=== PATIENT | female | born 1960 | race Caucasian/White ===

== ENCOUNTER 2019-02-04 08:17 | Emergency (ER) | payer OTHER, SELFPAY ==
[2019-02-04 08:25] VITALS: BP 141/89; PULSE 64; RESP 16; TEMP 37; O2SAT 100
--- NOTE | 2019-02-04 08:38 | DI.RAD_ITS ---
EXAM: XR HAND LT COMPLETE INDICATION: PAIN, INJURY, FELL FINDINGS: There is a faint transverse radiolucency projected over the distal radius. The possibility of a nond isplaced fracture could not be entirely excluded. The carpus is intact. No fracture involving the addison nd is evident. Further assessment with CT is suggested.
--- NOTE | 2019-02-04 08:40 | W.ED.GENAD ---
Discharge Plan Disposition Patient Disposition: HOME Condition: Good Discharge Details Chief Complaint: Orthopedic Clinical Impression: Fracture of wrist Primary Care Provider: Sowmya,Local ED Provider: Yari Crowe Home Meds and New Rx's Prescriptions: No Action No Known Home Meds RF: 0 Discharge Instructions Instructions: Wrist Fracture in Adults (ED) Additional Instructions: Rest. Activities as tolerated. Elevate injury to prevent swelling. Ice to the area of discomfort for 15 min. 3-5 times daily. Motrin every 8 hours with food or Tylenol every 6 hours for soreness if needed over the counter for comfort. Followup with orthopedic doctor for reevaluation. Keep splint in place, clean and dry. Return for any worsening or concerns sooner if needed. Stand Alone Forms: Work Release Referrals: Esvin Lainez MD [ [facility] STAFF PHYSICIAN] - Medical Decision Making Patient presents with a wrist injury to the left wrist after falling on outstretched hand down 2 steps. Patient has mild swelling noted at the wrist. Patient on x-ray does have a radial wrist fracture. Distal neurovascularly intact on exam. Patient splinted with a ulnar gutter/volar splint and sling. To follow-up with orthopedic. Aron encouraged. Patient reports her understanding and agrees to plan of care. HPI General Date/Time Provider Initiated Documentation: 02/04/19 08:20. HPI Narrative: Patient presents for complaints of left wrist injury. Patient reports she fell down the last 2 wooden steps at her house and landed on her left outstretched wrist. Patient did strike her left head. Patient denies headache, loss of consciousness, dizziness, nausea, vomiting. No neck or back pain. Patient denies any other sites of pain or injury. Primarily concerned with the left wrist. Swelling noted at the left wrist. No numbness, tingling or weakness reported. Related Data Home Medications Medication Instructions Recorded Confirmed Unknown [No Known Home Meds] 02/04/19 02/04/19 Allergies Allergy/AdvReac Type Severity Reaction Status Date / Time No Known Allergies Allergy Unverified 02/04/19 08:28 General Stated Complaint: Orthopedic THOMAS: 4 Review of Systems Review of Systems Narrative: CONSTITUTIONAL: The patient denies fevers, chills. EYES: Denies vision changes, blurry vision, or eye pain. ENT: Denies hearing changes, tinnitus, vertigo, sore throat. CARDIAC: Denies chest pain, SOB. RESPIRATORY: Denies cough, sputum. Denies difficulty breathing. GASTROINTESTINAL: Denies abdominal pain, changes in bowel, vomiting or nausea. GENITOURINARY: Denies dysuria, or frequency of urination. MUSCULOSKELETAL: Left wrist pain, no gait changes. NEUROLOGIC: Denies headaches, Denies focal weakness. Denies numbness. INTEGUMENT: Denies rashes. PSYCHIATRIC: Denies behavior changes. Denies anxiety or depression. ENDOCRINOLOGY: Denies fatigue. PSYCHIATRY: Denies depression, agitation or anxiety [facility] Social History Smoking/Tobacco Use Status: Never Alcohol Intake: current Alcohol Intake frequency: a few times a week Substance use type: does not use Additional Social history: unable to assess Exam Narrative Exam Narrative: CONST: Healthy appearing patient, in no acute distress. Well hydrated. Alert and alert. HENMT: Head nomocephalic, normal to inspection. Atraumatic. Hearing grossly normal. EYES: General normal appearance. Alignment normal. Eyelids normal. Conjunctiva normal. NECK: Normal visual inspection. FROM. Trachea midline. No Midline tenderness. CHEST: Normal insepection of the chest. RESP: Normal respiratory effort. Speaking full sentences. No cough. No audible wheezing. No retractions. CARDIO: No JVD. Neck back spine; no midline tenderness to the cervical, thoracic or lumbar spine. No step-offs. No ecchymosis low back. MUSCULOSKELETAL: Normal Gait. No shoulder pain with palpation, humeral head with palpation. No elbow pain palpation. Significant forearm. Palpation. Moderate tenderness of the radial aspect of the left wrist. Snuffbox tenderness present which is mild. Swelling present at the radial wrist. Distal neurovascularly intact. Mild dorsal hand pain with palpation. Flexion extension intact of digits. SKIN: Normal. Dry. No rashes. NEURO: Alert and awake. Speech clear. PSYCH: Normal affect. Cooperative. Course Vital Signs Vital signs: Vital Signs Temperature 37.0 C 02/04/19 08:25 Pulse 64 02/04/19 08:25 Respiratory Rate 16 02/04/19 08:25 Blood Pressure 141/89 H 02/04/19 08:25 Pulse Oximetry 100 02/04/19 08:25 Temperature 37.0 C 02/04/19 08:25 Temperature Source Temporal Artery Scan 02/04/19 08:25 Pulse 64 02/04/19 08:25 Respiratory Rate 16 02/04/19 08:25 Respiratory Effort Non-Labored 02/04/19 08:27 Blood Pressure 141/89 H 02/04/19 08:25 Blood Pressure Position Sitting 02/04/19 08:25 Pulse Oximetry 100 02/04/19 08:25 Oxygen Delivery Method Room Air 02/04/19 08:25 Oxygen Flow Rate 0 02/04/19 08:25 Pain Level 10 02/04/19 08:29 Procedures Orthopedic Splinting/Casting Injury #1: Side: left Upper Extremity Injury Location: wrist Upper Extremity Immobilizer: sling/shoulder immobilizer, thumb spica and Waylon wrap
[2019-02-04] MEDS: Acetaminophen 500 MG TAB 1000 MG PO (08:46)
[2019-02-04 10:06] VITALS: BP 133/67; PULSE 61; RESP 16; TEMP 37; O2SAT 100
== END 2019-02-04 10:18 | disposition home or self-care (01) ==
LOC: ER 10:38
PROVIDERS: Emergency Provider Physician Assistant
DX: S52.592A Other fractures of lower end of left radius, initial encounter for closed fracture (principal); W10.8XXA Fall (on) (from) other stairs and steps, initial encounter
CPT/HCPCS: 25600; 73110; 73130; L3650

== ENCOUNTER 2019-02-18 08:23 | Outpatient (CLI) | payer OTHER, SELFPAY ==
--- NOTE | 2019-02-18 08:16 | DI.RAD_ITS ---
EXAM: XR WRIST LT COMPLETE INDICATION: WRIST FRACTURE. COMPARISON: XR WRIST LT COMP NAVICULAR from 02/04/2019 TECHNIQUE: 2D digital imaging was performed. FINDINGS: Three views were obtained. The wrist is in a splint. Previously described fracture of the distal ra dius again noted with no gross interval change in alignment of the fracture fragments in comparison w ith examination of February 04. IMPRESSION:
== END 2019-02-18 08:43 ==
PROVIDERS: Visit Provider Student in an Organized Health Care Education/Training Program
DX: S52.572D Other intraarticular fracture of lower end of left radius, subsequent encounter for closed fracture with routine healing (principal)
CPT/HCPCS: 73110

== ENCOUNTER 2019-03-15 11:13 | Outpatient (CLI) | payer OTHER, SELFPAY ==
--- NOTE | 2019-03-15 11:01 | DI.RAD_ITS ---
EXAM: XR WRIST LT COMPLETE INDICATION: s/p L wrist frx f/u. COMPARISON: XR WRIST LT COMPLETE from 02/18/2019 TECHNIQUE: 2D digital imaging was performed. FINDINGS: There has been continued healing of the distal left radial fracture. No new fracture or dislocation is present. IMPRESSION: Healing distal left radial fracture.
== END 2019-03-15 11:33 ==
PROVIDERS: Visit Provider Student in an Organized Health Care Education/Training Program
DX: S52.572D Other intraarticular fracture of lower end of left radius, subsequent encounter for closed fracture with routine healing (principal)
CPT/HCPCS: 73110

== ENCOUNTER 2019-04-27 06:11 | Day surgery (SDC) | payer OTHER, SELFPAY ==
[2019-04-27] VITALS (8 sets, daily range): BP systolic 113–136; BP diastolic 60–83; PULSE 48–61; RESP 10–16; TEMP 36.4–36.7; O2SAT 97–100
[2019-04-27] MEDS: Lactated Ringers 1,000 ML 80 ML IV (07:03)
--- NOTE | 2019-04-27 07:28 | PDOC.DSDIS_ITS ---
Discharge Plan Disposition Patient Disposition: HOME Condition: Good Discharge Details Reason For Visit: (L) EPL RUPTURE Attending Provider: Esvin Lainez Primary Care Provider: ,Local Home Meds and New Rx's Prescriptions: New hydrocodone-acetaminophen 5-325 mg tablet 1 tab PO Q6H PRN (Reason: severe pain) Qty: 6 RF: 0 acetaminophen 500 mg tablet 500 mg PO Q6H PRN (Reason: pain) Qty: 60 RF: 2 ibuprofen 600 mg tablet 600 mg PO TID PRN (Reason: pain) Qty: 60 RF: 2 Continued vitamin B complex [B Complex-Vitamin B12] Tablet 1 tab PO DAILY RF: 0 Discharge Instructions Additional Instructions: Rupture of extensor tendon Discharge Instructions Activity: You should keep the hand elevated as much as possible for the first few days. You may use the other fingers as tolerated but avoid trying to do too much too soon. You may perform light activities with the splint in place. Dressing/Cast: Your splint should stay in place at all times for the first week. Do NOT get it wet. You may loosen the LONA wrap if you feel it is too tight and then rewrap more loosely. After one week you may transition out of the splint into your brace. Medications: - You should take Tylenol and Ibuprofen for baseline pain control. - You have Hydrocodone for breakthrough pain. - You may apply ice over the thumb. Follow-up: 7-10 days Referrals: Esvin Lainez MD [ [facility] STAFF PHYSICIAN] - Equipment/Supplies: Splint Activity:: Elevate Remove Dressings/Wound Care:: Do Not Remove Shower/Bathe:: Cover Diet:: As Tolerated Discharge Orders Discharge Orders: Discharge Order (Routine); Ordered 04/27/19 Ordered By: Nasra Sandoval DS: Diagnosis Discharge Diagnosis (1) Rupture of extensor tendon of left hand: Status: Acute
[2019-04-27] MEDS: ceFAZolin 2 GM/50 ML BAG IVPB (07:32)
[2019-04-27] MEDS: Bupivacaine 0.25% Pres-Free 30 ML VIAL (08:16)
--- NOTE | 2019-04-27 17:51 | ROE_ITS ---
DATE OF SURGERY: April 27, 2019 PREOPERATIVE DIAGNOSIS: Spontaneous rupture of left extensor pollicis longus tendon. POSTOPERATIVE DIAGNOSIS: Same. SURGERY: Extensor indicis proprius to extensor pollicis longus (EIP to EPL) tendon transfer of left hand. SURGEON: Esvin Lainez M.D. ANESTHESIA: General LMA. ESTIMATED BLOOD LOSS: Minimal. COMPLICATIONS: None. DISPOSITION: The patient was awakened from anesthesia and taken to the PACU in a stable condition. INDICATION FOR PROCEDURE: Ivana is a 58-year-old who had a nondisplaced distal radius fracture. She was treated non-operatively. At about the three month iza she was seen and cleared for all activit ies. Two days after this appointment she was using her hand and felt something pop and was unable to elevate or extend the left thumb. She was evaluated in the office and diagnosed with an EPL rupture . I discussed treatment options with Ivana. Given this rupture, she needs to have this repaired. The options were a direct repair vs. an EIP to EPL transfer. The literature supports and EIP to EPL transfer as the most predictable way of returning function to the thumb. I did talk about the necess agnieszka time for rehabilitation, although she has commitments with her work. She is to wear a brace and a splint and she is aware of this. I also discussed the risk of re-tear and re-rupture, numbness and tingling, stiffness and pain. Despite these risks, she elected to proceed. PROCEDURE DESCRIPTION: Ivana was greeted in the preoperative holding area. Her identity was confirm ed and the correct side was identified and marked. The consent was reviewed with the patient and sig josé miguel. The history and physical was updated. She was taken back to the operating room. She was place d in the supine position. The left hand was placed on a hand table. A non-sterile tourniquet was pl aced high up on the left arm. A general anesthetic was administered. The left hand was prepped with ChloraPrep and draped in a standard fashion. A time-out was performed for safe surgery. Prophylact ic antibiotics in the form of Cefazolin were given. Clinical examination under anesthesia showed that there was no IP extension of the thumb with the ten odesis effect. A 3 cm incision was made longitudinally just ulnar to Nigel's tubercle. This was ta margarita off sharply to the skin. Any branches of the superficial radial nerve and crossing veins were re tracted out of the way. The extensor retinaculum was identified and the tendons of the fourth compar tment were palpated. The proximal portion of the extensor retinaculum was then incised. The most ra dial tendon also had a very distal muscle belly representing the EIP, extensor indicis proprius, tend on. This was marked. I then made a 1 cm transverse incision just proximal to the MCP joint of the i ndex finger. The most ulnar tendon was expected to be the EIP tendon and this was also dissected stefanie e from the neighboring EDC tendon. The EDC tendon did seem to have two slips in this area. The most ulnar tendon was identified and once again checked to correspond to what we thought would be the EIP tendon at the level of the wrist. Once this was confirmed, the EIP tendon was transected at the lev el of the MCP joint and it was then pulled through the wrist incision. Once this was through, a 2 cm longitudinal incision was made overlying the course of the EPL tendon. This was taken off sharply t o the skin. Branches of the superficial radial nerve were dissected and retracted out of the way. T he EPL tendon was identified and it was pulled out. There was noted to be about a 2 cm area of attri tional rupture where the tendon was flattened and frayed. With this now out of the wound, I then cre ated a subcutaneous tunnel from the level of the EIP tendon up to the level of the EPL tendon at the level of the MCP joint of the thumb. Once this was brought through the tendons were clamped together for tensioning purposes and the thumb was tested for appropriate length. The goal was to allow the thumb pad to touch the index finger when the wrist goes to extension and then have the thumb pull christel y when the wrist goes into flexion, tenodesis effect. This was tested and adjusted. Once it seemed to be in appropriate position, it was held in place with a suture. A single slip was made within the EPL tendon and the EIP tendon was brought through this and secured with a #2-0 FiberWire. This was repeated four times with each time passing the tendon at 90 degrees from the previous throw. The ten don was incised and the graft was brought through in a standard Pulvertaft weave. Each pass was then secured with a #2-0 FiberWire. This was done for four throws. This was tested to show to have exce llent recreation of the extension properties of the EPL tendon with good tenodesis effect. The exces s tendon from the EIP was brought back over and then secured with a #3-0 FiberWire. Excess EPL tendo n was resected. The wounds were then thoroughly irrigated. The deep tissues were closed with a #3-0 Vicryl. The skin was closed with a #4-0 Monocryl. The wounds were injected with 0.5% Bupivacaine. The skin was secured with skin glue and dressed with 4x4's and Webril. A thumb spica splint was uma lied with the wrist in 20 degrees of extension, 30 degrees of flexion of the MCP joint and 0 degrees of extension at the IP joint. The tourniquet was deflated after twenty-seven minutes. Blood flow re turned to all fingers with good capillary refill of < 2 seconds. At the end of the case all counts w ere correct.
== END 2019-04-27 11:10 | disposition home or self-care (01) ==
PROVIDERS: Visit Provider Student in an Organized Health Care Education/Training Program
PROC: (CPT 26480; principal; 2019-04-27 07:30)
DX: M66.242 Spontaneous rupture of extensor tendons, left hand (principal)
CPT/HCPCS: 26480; J0690; J1100; J1885; J2250; J2405

== ENCOUNTER 2019-05-29 16:13 | Emergency (ER) | payer OTHER, SELFPAY ==
[2019-05-29 16:20] VITALS: BP 118/86; PULSE 69; RESP 16; TEMP 36.6; O2SAT 97
--- NOTE | 2019-05-29 16:35 | ED.GENADUL_ITS ---
Discharge Plan Disposition Patient Disposition: HOME Condition: Stable Discharge Details Chief Complaint: Orthopedic Clinical Impression: Visit for wound check, Change or removal of wound dressing, Orthopedic aftercare Primary Care Provider: Sowmya,Local ED Provider: Kailyn Khan Home Meds and New Rx's Prescriptions: Continued vitamin B complex [B Complex-Vitamin B12] Tablet 1 tab PO DAILY RF: 0 acetaminophen 500 mg tablet 500 mg PO Q6H PRN (Reason: pain) Qty: 60 RF: 2 ibuprofen 600 mg tablet 600 mg PO TID PRN (Reason: pain) Qty: 60 RF: 2 Discharge Instructions Instructions: Acute Wound Care (ED) Additional Instructions: Keep the dressing clean, dry and intact. Be sure to rest and keep extremity elevated as much as possible. Alternate Tylenol and Motrin as needed and directed for pain. Take the oxycodone for pain not relieved with Tylenol or Motrin. Follow-up with your scheduled appointment with Dr. Lainez on Friday. Return to the emergency department if you develop any worsening or concerning symptoms such as fevers, increased pain, redness or swelling. Referrals: Esvin Lainez MD [ [facility] STAFF PHYSICIAN] - Discharge Data Discharge Date/Time-TO BE ENTERED AT DEPARTURE: 05/29/19 17:33 Discharge Physician: Kailyn Khan Medical Decision Making 58-year-old female 1 month status post left wrist tendon transfer with Dr. Lainez complicated by site infection treated with Keflex presents with worsening left wrist pain after recent dressing change and splint placement to left wrist [address] Lainez. She presents with Mepilex dressing to apply to area as directed by Dr. Lainez if needed. Splint and dressing removed here. Reviewed other recent images of wrist wound on phone and does not appear significantly different and almost slightly improved. There is no surrounding erythema. Tendon visible. There is no pus drainage, induration or fluctuance. Do not see indication for antibiotics at this time. Case discussed with Dr. Lainez who agrees with plan for splint removal and to now cover instead with Mepilex, soft bulky dressing and Waylon wrap. Mepilex placed and covered with Kerlix and Waylon wrap. Patient given a dose of oxycodone as well as prescription for home. She has a follow-up appointment with Dr. Lainez on Friday morning. Usual and customary return precautions given prior to discharge. HPI General Mode of arrival: ambulatory . Date/Time Provider Initiated Documentation: 05/29/19 16:32 . Limitations to Documentation: no limitations . Information obtained by: patient . History of Present Illness 58 year old F presents to the emergency department with the chief complaint of Wound check of left thumb/wrist, Quality is described as aching and sharp, and is localized to the left and upper extremity (Left hand/wrist). Patient reports no radiation. Patient started experiencing this day(s) (2) and it has been constant. Rest improves symptom(s), Movement worsens symptoms and Other factors that worsen symptoms (Splint) . Patient notes denies fever/chills. Patient did receive the following treatments prior to arrival, none Related D catherine Home Medications Medication Instructions Recorded Confirmed vitamin B complex [B 1 tab PO DAILY 04/26/19 05/29/19 Complex-Vitamin B12] acetaminophen 500 mg PO Q6H PRN #60 tab 04/27/19 05/29/19 ibuprofen 600 mg PO TID PRN #60 tab 04/27/19 05/29/19 Previous Rx's Medication Instructions Recorded acetaminophen 500 mg PO Q6H PRN #60 tab 04/27/19 ibuprofen 600 mg PO TID PRN #60 tab 04/27/19 Allergies Allergy/AdvReac Type Severity Reaction Status Date / Time latex Allergy Verified 05/29/19 16:27 General Stated Complaint: Orthopedic THOMAS: 3 Review of Systems All systems reviewed & are unremarkable except as noted in HPI and below Constitutional Constitutional: Reports as per HPI, Denies chills and Denies fever(s) Eyes Eyes: Denies blurry vision ENT Ears, Nose, Mouth, and Throat: Denies dizziness, Denies sore throat and Denies throat swelling Cardiovascular Cardiovascular: Denies chest pain and Denies dyspnea Respiratory Respiratory: Denies cough and Denies dyspnea Gastrointestinal Gastrointestinal: Denies abdominal pain, Denies diarrhea and Denies vomiting Genitourinary Genitourinary: Denies hematuria and Denies dysuria Musculoskeletal Musculoskeletal: Denies back pain and Denies numbness Integumentary/Breasts Skin/Breast: Denies lesions and Denies rash Neurologic Neurologic: Denies dizziness, Denies focal weakness and Denies numbness Allergic/Immunologic Allergic/Immunologic: Denies throat swelling [facility] Medical History History of seizure (Acute) PT. STATES SHE USED TO GET FREQUENT SEIZURES IN HER TWENTY'S. HAS STATED SHE HAS NOT HAD ONE IN 30+ YEARS. WOULD LIKE US TO BE AWARE. Social History Smoking/Tobacco Use Status: Never Alcohol Intake: current Alcohol Intake frequency: a few times a week Alcohol type: beer and wine Drug use: Never Substance use type: does not use Current gender identity: female Do you feel safe at home: Yes Do you feel safe in your relationship?: Yes Exam Const General: cooperative, healthy appearing and no acute distress HENMT Head: normal to inspection Mouth: oral mucosae normal Eyes General: appearance normal, both eyes and all related structures Neck Neck: normal visual inspection Resp Effort & Inspection: normal respiratory effort and able to speak in complete sentences Cardio Rate: regular rate Skin General skin exam: no rashes or lesions noted Neuro General: alert, awake and oriented x3 Motor: muscle tone normal throughout Other: Motor/sensory grossly intact left hand. Extrem Hand/finger images: 1. 4 mm x 2 cm open wound with tendon exposed at distal aspect of wound located on dorsolateral surface of base of left thumb. There is mild active oozing of blood. There is no significant surrounding erythema, edema, ecchymosis fluctuance or induration. No pus drainage noted. Area is tender to palpation. Other: Left radial and ulnar pulses intact. Psych Appearance: grossly normal Affect: normal affect Course Vital Signs Vital signs: Vital Signs Temperature 97.9 F 05/29/19 16:20 Pulse 69 05/29/19 16:20 Respiratory Rate 16 05/29/19 16:20 Blood Pressure 118/86 05/29/19 16:20 Pulse Oximetry 97 05/29/19 16:20 Temperature 97.9 F 05/29/19 16:20 Temperature Source Skin 05/29/19 16:20 Pulse 69 05/29/19 16:20 Respiratory Rate 16 05/29/19 16:20 Respiratory Effort 05/29/19 16:27 Blood Pressure 118/86 05/29/19 16:20 Blood Pressure Position Sitting 05/29/19 16:20 Pulse Oximetry 97 05/29/19 16:20 Oxygen Delivery Method Room Air 05/29/19 16:20 Oxygen Flow Rate 0 05/29/19 16:20 Pain Level 8 05/29/19 16:20
[2019-05-29] MEDS: oxyCODONE 5 MG TAB PO (17:24)
== END 2019-05-29 17:33 | disposition home or self-care (01) ==
LOC: ER 17:16
PROVIDERS: Emergency Provider Physician Assistant
DX: M25.532 Pain in left wrist (principal); G89.18 Other acute postprocedural pain; Z48.01 Encounter for change or removal of surgical wound dressing; Z96.7 Presence of other bone and tendon implants
CPT/HCPCS: 99283

== ENCOUNTER 2019-06-02 12:23 | Day surgery (SDC) | payer OTHER, SELFPAY ==
[2019-06-02 12:47] VITALS: BP 112/69; PULSE 58; RESP 16; TEMP 36.6; O2SAT 95
[2019-06-02] MEDS: Lactated Ringers 1,000 ML 80 ML IV (13:10)
[2019-06-02] MEDS: ceFAZolin 2 GM/50 ML BAG IVPB (15:21)
[2019-06-02] MEDS: Sodium Bicarbonate 50 MEQ/50 ML VIAL (16:05)
--- NOTE | 2019-06-02 16:13 | W.PM.DSUDISC ---
Discharge Plan Disposition Patient Disposition: HOME Condition: Good Discharge Details Reason For Visit: (L) HAND WOUND Attending Provider: Esvin Lainez Primary Care Provider: ,Local Home Meds and New Rx's Prescriptions: New hydrocodone-acetaminophen 5-325 mg tablet 1 tab PO Q4H PRN (Reason: pain) Qty: 12 RF: 0 Continued vitamin B complex [B Complex-Vitamin B12] Tablet 1 tab PO DAILY RF: 0 acetaminophen 500 mg tablet 500 mg PO Q6H PRN (Reason: pain) Qty: 60 RF: 2 ibuprofen 600 mg tablet 600 mg PO TID PRN (Reason: pain) Qty: 60 RF: 2 Discontinued oxycodone 5 mg Capsule 5 mg PO Q6H RF: 0 Discharge Instructions Additional Instructions: Activity: You should keep the hand/thumb elevated as much as possible for the first few days. You may use the other fingers as tolerated but avoid trying to do too much too soon. You may perform light activities with the splint in place. Dressing/Cast: Your splint should stay in place at all times. Do NOT get it wet. You may loosen the LONA wrap if you feel it is too tight and then rewrap more loosely. Medications: - You should take Tylenol and Ibuprofen for baseline pain control. - You have Hydrocodone for breakthrough pain. - You may apply ice over the thumb. Follow-up: 14 days Referrals: Esvin Lainez MD [ [facility] STAFF PHYSICIAN] - [facility] [Provider Group] (Hand Therapy with orthoplast thumb extension brace fabrication) Equipment/Supplies: Splint Activity:: Elevate Remove Dressings/Wound Care:: Do Not Remove Shower/Bathe:: Cover Diet:: As Tolerated Discharge Orders Discharge Orders: Discharge Order (Routine); Ordered 06/02/19 Ordered By: Esvin Lainez DS: Diagnosis Discharge Diagnosis (1) Rupture of extensor tendon of left hand: Status: Acute (2) Surgical wound dehiscence: Status: Acute
[2019-06-02 16:49] VITALS: BP 119/69; PULSE 53; RESP 16; TEMP 36.3; O2SAT 100
--- NOTE | 2019-06-03 08:15 | ROE_ITS ---
REPORT OF OPERATIVE PROCEDURE DATE OF SURGERY June 02, 2019 PREOPERATIVE DIAGNOSIS Left surgical wound dehiscence with exposed tendon. POSTOPERATIVE DIAGNOSIS Left surgical wound dehiscence with re-rupture of EIP to EPL transfer. SURGERY Irrigation and debridement of left hand wound with primary EIP to EPL repair. SURGEON Esvin Lainez M.D. ANESTHESIA General. ESTIMATED BLOOD LOSS Minimal. COMPLICATIONS: None. DISPOSITION The patient was awakened from anesthesia and taken to the PACU in a stable condition. FINDINGS The exposed tendon was actually the proximal end of the EPL tendon. The wound had no gross purulence. There was some healing tissue and skin, but no signs of active infection. The edge of the tendon, wh ich was exposed with debrided. The wound was inspected and while it was the thought that the tendon w as intact, it was found to not be. There was notable destruction of this area. There was some suture, which was left free. In general, the tendon components were not present. I was able to bring the two ends together. The distal end was the proximal portion of the EIP to EPL interlocking weave and the proximal stump was the distal end of the EIP tendon. This tendon quality was quite poor due to the re cent infection, but was still able to be approximated. Therefore, I proceeded with a tendon repair di rectly. INDICATION FOR PROCEDURE Ivana is a 58-year-old who had an EPL rupture due to a nondisplaced distal radius fracture of the lef t hand. An EIP to EPL transfer was performed. Due to various circumstances, she returned to work with in a few days and was out of the area for this time. She used a brace. However, she was working long days within the brace. She noticed some swelling and was diagnosed with an infection while she was in [place]. This was treated initially with antibiotics. The infection improved and cured with antibio tics, but unfortunately, she had dehiscence of her wound. I then evaluated her in the office, where t here was notable tendon exposed. The wound appeared clean. It was dressed and treated conservatively initially. However, at followup visits, the tendon was still exposed and therefore, the decision was made to proceed with a debridement. I discussed the risks of the procedure to include recurrence, tendon dysfunction, damage to nerves an d vessels, damage to muscles and tendons, need for repeat procedures. Despite these risks, she electe d to proceed. . PROCEDURE DESCRIPTION Ivana was greeted in the preoperative holding area. Her identity was confirmed and the correct side was identified and marked. The consent was reviewed with the patient and signed. The history and ph ysical was updated. She was taken back to the Operating Room and placed in the supine position. The left hand was placed on a hand table. Prophylactic antibiotics in the form of Cefazolin were admini stered. The left hand was prepped with Betadine and draped in a standard fashion. A timeout was perfo rmed for safe surgery. The initial area of dehiscence was identified and this incision was extended a pproximately 1 cm in each direction. I was very careful with the skin edges as she had good healing g ranulation tissue. The skin flaps were elevated to expose the underlying tendon. The wound was then t horoughly irrigated. After irrigation, there was no gross debris. There was no obvious evidence of ac tive infection. There was no purulence. Unfortunately, there was remnant suture seen within the wound itself, these were removed. With the th umb in maximal extension, the distal stump was evaluated. It was unclear exactly what happened, but i t appears that the infection eroded through the majority of the tendon. There simply was a section of tendon not present. The distal stump was likely the proximal edge of the Pulvertaft Weave. The proxi mal stump was visible in the wound, which represented the distal edge of the EIP tendon. This once ag ain was thoroughly irrigated and this tissue was identified. I did not see any remnant transfer mater ial. There was scarring between the two edges, which was likely holding them in relative position. Gi alondra this finding, I did decide to proceed with a direct tendon repair. After the debridement was performed, I used a # 3-0 FiberWire in a cruciate-type pattern to perform t wo locking sutures, a four core repair. The tissue quality was quite poor and I had to modify the sut ure technique to grab, as much good tissue was I possibly could find and to bring these edges back to gether. After the second suture was placed, there was noted to be a good bit of tension, but no gappi ng of the tendon with tenodesis effect. I then used a #3-[address] two simple type sutures right around the tendon edges, which actually provided nice reapproximation of the complete circumfe rence of the tendon. This was once again irrigated. The wound was anesthetized with 1% lidocaine with epinephrine. The skin was closed with a #4-0 Nylon with large horizontal mattress sutures making shannon e to jose roberto the skin edges. The wound was dressed with Xeroform, 4x4s and Webril. A short-arm thumb sp ica splint was applied. At the end of the case, all counts were correct. She was transferred back to the Same Day Surgery in stable condition.
== END 2019-06-02 17:47 | disposition home or self-care (01) ==
PROVIDERS: Visit Provider Student in an Organized Health Care Education/Training Program
PROC: (CPT 26373; principal; 2019-06-02 15:30)
DX: T81.32XA Disruption of internal operation (surgical) wound, not elsewhere classified, initial encounter (principal); M66.242 Spontaneous rupture of extensor tendons, left hand
CPT/HCPCS: 26373; J0690; J1885; J2001; J2405; J2704

== ENCOUNTER 2019-06-26 11:31 | Emergency (ER) | payer OTHER, SELFPAY ==
[2019-06-26 11:35] VITALS: BP 124/90; PULSE 70; RESP 16; TEMP 36.9; O2SAT 100
--- NOTE | 2019-06-26 11:50 | W.ED.GENAD ---
Discharge Plan Disposition Patient Disposition: HOME Condition: Improving Discharge Details Chief Complaint: Orthopedic Clinical Impression: Surgical wound dehiscence Primary Care Provider: [facility] Provider: Antoni Randall Home Meds and New Rx's Prescriptions: Continued ciprofloxacin HCl 500 mg tablet 500 mg PO BID Qty: 14 RF: 0 vitamin B complex [B Complex-Vitamin B12] Tablet 1 tab PO DAILY RF: 0 hydrocodone-acetaminophen 5-325 mg tablet 1 tab PO Q4H PRN (Reason: pain) Qty: 12 RF: 0 acetaminophen 500 mg tablet 500 mg PO Q6H PRN (Reason: pain) Qty: 60 RF: 2 ibuprofen 600 mg tablet 600 mg PO TID PRN (Reason: pain) Qty: 60 RF: 2 No Action cephalexin 500 mg capsule 500 mg PO BID RF: 0 cephalexin [Keflex] 500 mg capsule 500 mg PO BID RF: 0 Discharge Instructions Additional Instructions: Continue wet-to-dry dressing changes once daily. May soak the wound and then gently reflect the dressing as we discussed. Continue ciprofloxacin as previously prescribed. Follow-up with Dr. Lainez in clinic on Friday as planned. Return to the emergency department for any acute concern. Medical Decision Making 58-year-old female presents for wound check. She has been following with Dr. Lainez for left thumb extensor tendon repair and subsequent redo on June 03. She was placed on ciprofloxacin and wet-to-dry dressing changes in clinic. Now difficulty with removing dressing. I was able to gently remove the wet-to-dry dressing with good granulation tissue present. She will continue the ciprofloxacin and follow-up with Dr. Lainez on Friday as planned. CC: Dr. Lainez [facility] General Mode of arrival: ambulatory. Date/Time Provider Initiated Documentation: 06/26/19 11:31. Limitations to Documentation: no limitations. Information obtained by: patient. History of Present Illness 58 year old F presents to the emergency department with the chief complaint of Wound check, described as mild, and is localized to the left and upper extremity. Patient reports no radiation. Patient started experiencing this day(s) and it has been constant. No relieving factors improve symptom(s), No exacerbating factors reported . Patient notes denies fever/chills. Patient did receive the following treatments prior to arrival, none Related Data Home Medications Medication Instructions Recorded Confirmed vitamin B complex [B 1 tab PO DAILY 12/09/19 02/08/20 Complex-Vitamin B12] acetaminophen 500 mg PO Q6H PRN #60 tab 06/02/19 06/26/19 hydrocodone-acetaminophen 1 tab PO Q4H PRN #12 tab 06/02/19 06/26/19 ibuprofen 600 mg PO TID PRN #60 tab 06/02/19 06/26/19 ciprofloxacin HCl 500 mg tablet 500 mg PO BID #14 tab 06/21/19 06/26/19 cephalexin 500 mg PO BID 06/26/19 06/26/19 cephalexin [Keflex] 500 mg PO BID 06/26/19 06/26/19 Previous Rx's Medication Instructions Recorded acetaminophen 500 mg PO Q6H PRN #60 tab 06/02/19 hydrocodone-acetaminophen 1 tab PO Q4H PRN #12 tab 06/02/19 ibuprofen 600 mg PO TID PRN #60 tab 06/02/19 ciprofloxacin HCl 500 mg tablet 500 mg PO BID #14 tab 06/21/19 Allergies Allergy/AdvReac Type Severity Reaction Status Date / Time latex Allergy Verified 06/26/19 11:38 aloe AdvReac Verified 06/26/19 11:38 General Stated Complaint: Orthopedic THOMAS: 4 Review of Systems Narrative: No fever, no pain, no discharge REPLACED BY [facility] Medical History History of seizure (Acute) PT. STATES SHE USED TO GET FREQUENT SEIZURES IN HER TWENTY'S. HAS STATED SHE HAS NOT HAD ONE IN 30+ YEARS. WOULD LIKE US TO BE AWARE. Hx of fracture of wrist (Acute) Ruptured tendon (Acute) Social History Smoking/Tobacco Use Status: Never Alcohol Intake: current Alcohol Intake frequency: a few times a week Alcohol type: beer and wine Drug use: Never Substance use type: does not use Details: alcohol: 05/24/19, glass of wine Current gender identity: female Do you feel safe at home: Yes Do you feel safe in your relationship?: Yes Additional Social history: Exam Narrative Exam Narrative: GEN: awake, alert, oriented 3. Pleasant, well groomed, interactive. HEAD: Normocephalic, atraumatic ENT: Mucous membranes moist, oropharynx unremarkable, External ear exam unremarkable EYES: PERRL, EOMI NECK: Full ROM, no KLAUDIA, no menigismus EXT: The left upper extremity along the extensor surface of the thumb has approximately 2 cm area of open wound with granulation tissue present and what appears to be remnant tendon. Distal sensation intact. Neuro: Grossly normal neurologic exam, conversant, interactive. Psych: Speech fluent, thoughts congruent, affect normal Course Vital Signs Vital signs: Vital Signs Temperature 36.9 C 06/26/19 11:35 Pulse 70 06/26/19 11:35 Respiratory Rate 16 06/26/19 11:35 Blood Pressure 124/90 06/26/19 11:35 Pulse Oximetry 100 06/26/19 11:35 Temperature 36.9 C 06/26/19 11:35 Temperature Source Skin 06/26/19 11:35 Pulse 70 06/26/19 11:35 Respiratory Rate 16 06/26/19 11:35 Respiratory Effort Non-Labored 06/26/19 11:35 Blood Pressure 124/90 06/26/19 11:35 Blood Pressure Position Sitting 06/26/19 11:35 Pulse Oximetry 100 06/26/19 11:35 End Tidal Co2 0 06/26/19 11:35
== END 2019-06-26 12:00 | disposition home or self-care (01) ==
LOC: ER 12:01
PROVIDERS: Emergency Provider Emergency Medicine
DX: Z47.89 Encounter for other orthopedic aftercare (principal)
CPT/HCPCS: 99281

== ENCOUNTER 2020-07-04 00:58 | Outpatient (CLI) | payer OTHER, SELFPAY ==
--- NOTE | 2020-07-04 12:00 | DI.MAMMO_ITS ---
EXAM: MAMMO SCREENING CLINICAL HISTORY: SCREENING, Z12.39 TECHNIQUE: Mammograms were interpreted according to the usual protocol including computer analysis w [employer] CAD system, tomosynthesis and C-view imaging. COMPARISON: 2010 from when [facility] Radiology FINDINGS: The breasts are composed of heterogeneously dense fibroglandular densities, Breast Density category C . No suspicious masses or suspicious microcalcifications are seen. No skin thickening or abnormal axillary lymph nodes are seen. There has been no significant change from prior exams. IMPRESSION: BI-RADS Category 1, Negative mammogram. Yearly screening mammography is recommended. Breast Density Category C, heterogeneously Dense. The mammogram demonstrates the patient's breast tissue is dense. Dense breast tissue is very common a nd is not abnormal but dense breast tissue can make it harder to find cancer on a mammogram. Also, de nse breast tissue may increase breast cancer risk. This information about the result of the mammogram report was provided to the patient to raise their awareness. Use this report when you speak with the patient about their risks for breast cancer, which includes their family history. At that time, you may recommend additional screening tests (Ultrasound or MRI) as they might be useful based on their r isk. A negative radiographic report should not delay biopsy if a dominant or clinically suspicious mass is present. Up to ten percent of cancers are not identified on mammography. A negative report may reinforce clinical impression. Adenosis and dense breasts may obscure an underlying neoplasm. False positive reports average 6 to 10%.
== END 2020-07-04 00:59 ==
LOC: DI 00:58
PROVIDERS: PCP Physician Assistant; Visit Provider Physician Assistant
DX: Z12.31 Encounter for screening mammogram for malignant neoplasm of breast (principal)
CPT/HCPCS: 77063; 77067

== ENCOUNTER 2020-09-13 03:20 | Outpatient (CLI) | payer OTHER, SELFPAY ==
[2020-09-13 10:10] LABS: Source Nasal/Nares
[2020-09-13 14:18] LABS: COVID-19 PCR Negative (Negative)
== END 2020-09-13 03:21 | disposition home or self-care (01) ==
LOC: LBO 03:20
PROVIDERS: PCP Physician Assistant; Visit Provider Surgery
DX: Z20.822 Contact with and (suspected) exposure to COVID-19 (principal); Z01.818 Encounter for other preprocedural examination
CPT/HCPCS: 87635

== ENCOUNTER 2020-09-15 08:02 | Day surgery (SDC) | payer OTHER, SELFPAY ==
[2020-09-15 08:15] VITALS: BP 97/66; PULSE 67; RESP 17; TEMP 36.3; O2SAT 98
--- NOTE | 2020-09-15 08:36 | W.ANESPRE ---
General Info Date of Service Date Performed: 09/15/20 Height: 5 ft 4 in Weight: 61.745 kg Body Mass Index (BMI): 23.3 Surgical Procedure: Operation Date: 09/15/20 09:05 Proposed Procedures Side Surgeon bakari Mcallister DO Meds Allergies and Home Medications Allergies Allergy/AdvReac Type Severity Reaction Status Date / Time latex Allergy Verified 09/15/20 08:08 aloe AdvReac Verified 09/15/20 08:08 Home Medication Medication Instructions Recorded bisacodyl 5 mg tablet,delayed 5 mg PO ONCE #4 tab 08/17/20 release polyethylene glycol 3350 17 238 g PO ONCE #238 g 08/17/20 gram/dose oral powder Current Visit Medications: Current Medications Generic Name Dose Route Start Last Admin Trade Name Freq PRN Reason Stop Dose Admin Ringer's Solution 1,000 mls @ 80 mls/hr 09/15/20 06:00 IV 10/14/20 23:59 INFUSION ALLISON IV Miscellaneous Supplies 1 each 09/15/20 06:00 Iv Access IV 10/14/20 23:59 DIRECTED ALLISON Sodium Chloride 0 ml 09/15/20 06:00 Normal Saline Flush 10 Ml Syr IV 10/14/20 23:59 PRN PRN PFSH Active Problems Active Problems: Problem Status Onset Code Rupture of extensor tendon of left hand 04/27/19 S66.812A Surgical wound dehiscence T81.31XA Medical History Medical History Anxiety History of seizure PT. STATES SHE USED TO GET FREQUENT SEIZURES IN HER TWENTY'S. HAS STATED SHE HAS NOT HAD ONE IN 30+ YEARS. WOULD LIKE US TO BE AWARE. Hx of fracture of wrist Hx of hemorrhoids Ruptured tendon Surgical History Surgical History Rupture of extensor tendon of left hand (04/27/19) S/P EIP to EPL tendon transfer Surgical wound dehiscence S/P I&D on 06/02/2019 Tobacco Smoking/Tobacco Use Status: Never Alcohol Alcohol Intake: current Alcohol intake frequency: a few times a week Alcohol type: beer and wine Substance Use Substance use: Never Substance use type: does not use Details: alcohol: more than one week ago. Vital Signs and Lab Results Vital Signs Most Recent Vital Signs in EMR: Most Recent Vital Signs Temp Pulse Resp BP Pulse Ox 36.3 C L 67 17 97/66 L 98 09/15/20 08:15 09/15/20 08:15 09/15/20 08:15 09/15/20 08:15 09/15/20 08:15 Lab Results Blood Type / Crossmatch: No Data to Display Complete Blood Count: No Data to Display Complete Metabolic Panel: No Data to Display Liver Function Panel: No Data to Display Coagulation Panel: No Data to Display Cardiac Panel: No Data to Display Arterial Blood Gas: No Data to Display Venous Blood Gas: No Data to Display Pancreas Panel: No Data to Display Thyroid Panel: No Data to Display Infectious Disease: Coronavirus (COVID-19)(PCR) Negative (Negative) 09/13/20 09:23 09/13/20 Coronavirus 2019 Source Nasal/nares 09/13/20 09:23 09/13/20 Blood Cultures: No Data to Display Toxicology Panel: No Data to Display Panel: No Data to Display Anesthesia Assessment and Plan Anesthesia History Personal History: No History of Anesthesia Complications Family History: No Family History of Anesthesia Complications Exercise Tolerance Exercise Tolerance: Metabolic Equivalents>4 Pertinent Negatives Pertinent Negatives: No Symptoms of GERD, No Major Cardiovascular Symptoms or Complaints and No Major Pulmonary Symptoms or Complaints Cardiac & Pulmonary Exam Cardiac Exam: Normal S1/S2 Heart Sounds Pulmonary Exam: Clear Bilateral Breath Sounds Airway Exam Known Difficult Airway: No Mallampati Class: 1 Mouth Opening: Normal (> 3cm) Thyromental Distance: Greater than 3 cm Neck Range of Motion: Full ROM Neck Circumference: Normal Teeth Condition: Normal Dentition and Loose or Chipped (# 11) ASA Classification ASA Score: ASA 2 ASA Emergency: No NPO Status NPO Status: NPO Clears >2 hours, Solids >8 hours Anesthesia Plan Anesthesia Technique: General Anesthesia Airway Planned: Natural Airway Monitors Used: Standard Monitors
[2020-09-15 08:38] VITALS: BMI 23.3
[2020-09-15] MEDS: Lactated Ringers 1,000 ML 80 ML IV (08:42)
--- NOTE | 2020-09-15 09:30 | BOWEL_PTH ---
PATIENT: Ivana Mccurdy LOC: [facility] U#:[id number] AGE/SX: 59/F ROOM: RE09/15/[address]: Nasra Mcallister : 1960 BED: DIS: 09/15/2020 SPEC #: [id number] RECD: 09/15/20 12:57 STATUS: ASAEL REQ #: [id number] CONRAD: 09/15/20 09:[address]: Nasra Mcallister DEPT: Surgical Specimen RECD BY: Carola Cowart ENTERED: 09/15/20 12:58 SP TYPE: Bowel OTHR DR: Manuel Rodriguez Tissues: 1 - BIOPSY BOWEL Procedures: GROSS AND MICRO LEVEL 4 Comments: [id number]
--- NOTE | 2020-09-15 09:44 | W.COLOREPORT ---
Date of service: 09/15/20 Time of Service: 09:44 Colonoscopy Report Date of procedure: 09/15/20 Pre-op diagnosis general: CRC screen Post-op diagnosis procedure note: other (polyp/divertic/internal hem) Surgeon: Nasra Mcallister Anesthesia Type: General:No Airway Estimated blood loss (mL): 0 Pathology: other Complications: None Disposition: same day Prep: Miralax/Dulcolax Retraction Time: 11 mins Procedure Description: After informed consent was obtained the patient was taken to the procedure room and placed in a left decubitous position. Monitors were applied and a time out was done. The patients name, date of , procedure, allergies to medications and metal in their body was reviewed. The patient was then sedated. Once sedated and comfortable a rectal exam was done. External exam was normal. Internal exam revealed a normal sphincter tone and no palpable masses. The scope was then introduced and retrofelexed. Grade I internal hemorrhoids were identified. The scope was then advanced to the cecum w/out difficulty. Her colon is extremely tortuous and her flexures are very sharp. the TI and appendiceal orifice were identified. The prep was good. The scope was then slowly retracted over 11 minutes back into the rectum. She is a small flat 5 mm polyp that is removed from the cecum cold biting forcep. All specimen is retrieved and no bleeding is noted. She has moderate diverticula confined to the sigmoid colon. There is no signs of active bleeding or infection.. The scope was removed and the patient was woken up and taken back to Same day surgery in stable condition. The patient tolerated the procedure well and there were no immediate complications. Follow up: The patient should follow up in 7yrs- path pending,years unless they develop changes in bowel habits or other new gastrointestinal complaints.
--- NOTE | 2020-09-15 09:48 | PDOC.DSDIS_ITS ---
Discharge Plan Disposition Patient Disposition: HOME Condition: Good Discharge Details Reason For Visit: colon scope Attending Provider: Nasra Mcallister Primary Care Provider: Manuel Rodriguez Home Meds and New Rx's Prescriptions: Discontinued bisacodyl [Dulcolax (bisacodyl)] 5 mg tablet,delayed release (DR/EC) 5 mg PO ONCE Qty: 4 RF: 0 polyethylene glycol 3350 17 gram/dose powder 238 g PO ONCE Qty: 238 RF: 0 Discharge Instructions Additional Instructions: Findings:Internal hemorrhoids polyp x1 diverticula Follow up: my office will send a letter in approximately 3 weeks detailing what type of polyp was and when to repeat the colonoscopy. Please call if you develop: fevers >101.5 Nausea or Vomiting Abdominal pain that is not transient DAY SURGERY UNIT POST COLONOSCOPY INSTRUCTIONS 1. Because there will be medication in your system for the next 24 hours, you may feel a little sleepy. Your coordination will be affected. Therefore: a. Do not drive or operate dangerous equipment for 24 hours. b. Do not drink alcohol beverages for 24 hours (not even beer). c. Plan to go home and rest for the day. 2. Generally there are no restrictions on your activity after a day or so has gone by, but you may feel a bit fatigued for a few days. 3 After you arrive home you may have a light meal and return to a normal diet as you can tolerate it without feeling sick to your stomach. 4. After surgery, you may feel pain or discomfort. This should be only transient, but if it persists please contact your doctor. 5. If there are any questions regarding the findings of your procedure, please feel free to contact your doctor. 6. If you are unable to contact your doctor with a problem, contact the hospital at [phone]. 7. Continue all your regular medications unless directed otherwise. I understand the above instructions and have no questions. Signature of Patient or Responsible Adult Escort Date/Time Name of Responsible Adult Escort Signature of Nurse Date/Time DIVERTICULAR DISEASE OVERVIEW ? A diverticulum is a pouch-like structure that can form through points of weakness in the muscular wall of the colon (ie, at points where blood vessels pass through the wall). Diverticulosis affects men and women equally. The risk of diverticular disease increases with age. It occurs throughout the world but is seen more commonly in developed countries. WHAT IS DIVERTICULAR DISEASE? Diverticulosis ? Diverticulosis merely describes the presence of diverticula. Diverticulosis is often found during a test done for other reasons, such as flexible sigmoidoscopy, colonoscopy, or barium enema. Most people with diverticulosis have no symptoms and will remain symptom free for the rest of their lives. A person with diverticulosis may have diverticulitis, or diverticular bleeding. Diverticulitis ? Inflammation of a diverticulum (diverticulitis) occurs when there is thinning and breakdown of the diverticular wall. This may be caused by increased pressure within the colon or by hardened particles of stool, which can become lodged within the diverticulum. The symptoms of diverticulitis depend upon the degree of inflammation present. The most common symptom is pain in the left lower abdomen. Other symptoms can include nausea and vomiting, constipation, diarrhea, and urinary symptoms such as pain or burning when urinating or the frequent need to urinate. Diverticulitis is divided into simple and complicated forms. ?Simple diverticulitis, which accounts for 75 percent of cases, is not associated with complications and typically responds to medical treatment without surgery. ?Complicated diverticulitis occurs in 25 percent of cases and usually requires surgery. Complications associated with diverticulitis can include the following: ?Abscess ? a localized collection of pus ?Fistula ? an abnormal tract between two areas that are not normally connected (eg, bowel and bladder) ?Obstruction ? a blockage of the colon ?Peritonitis ? infection involving the space around the abdominal organ ?Sepsis ? overwhelming body-wide infection that can lead to failure of multiple organs Diverticular bleeding ? Diverticular bleeding occurs when a small artery located within a diverticulum is eroded and bleeds into the colon. Diverticular bleeding usually causes painless bleeding from the rectum. In approximately 50 percent of cases, the person will see maroon or bright red blood with bowel movements. Is bleeding with a bowel movement normal? ? It is not normal to see blood in a bowel movement; this can be a sign of several conditions, most of which are not serious (eg, hemorrhoids) but some of which are serious and require immediate treatment. Anyone who sees blood after a bowel movement should consult with their healthcare provider to determine if further testing or evaluation is needed. DIVERTICULOSIS AND DIVERTICULITIS DIAGNOSIS ? Diverticulosis is often found during tests performed for other reasons. ?Barium enema ? This is an x-ray study that uses barium in an enema to view the outline of the lower intestinal tract. This is an older test and has been largely replaced by computed tomography (CT) scan. ?Flexible sigmoidoscopy ? This is an examination of the inside of the sigmoid colon with a thin, flexible tube that contains a camera. ?Colonoscopy ? This is an examination of the inside of the entire colon. ?CT scan ? A CT scan is often used to diagnose diverticulitis and its complications. If diverticulitis (not just diverticulosis) is suspected, the above three tests should not be used because of the risk of perforation. TREATMENT Diverticulosis ? People with diverticulosis who do not have symptoms do not require treatment. However, most clinicians recommend increasing fiber in the diet, which can help to bulk the stools and possibly prevent the development of new diverticula, diverticulitis, or diverticular bleeding. Fiber is not proven to prevent these conditions in all patients but may help to control recurrent episodes in some. Increase fiber ? Fruits and vegetables are a good source of fiber. Fiber content of packaged foods can be calculated by reading the nutrition label. Seeds and nuts ? Patients with diverticular disease have historically been advised to avoid whole pieces of fiber (such as seeds, corn, and nuts) because of concern that these foods could cause an episode of diverticulitis. However, this belief is completely unproven. We do not suggest that patients with diverticulosis avoid seeds, corn, or nuts. Diverticulitis ? Treatment of diverticulitis depends upon how severe your symptoms are. Home treatment ? If you have mild symptoms of diverticulitis (mild abdominal pain, usually left lower abdomen), you can be treated at home with a clear liquid diet and oral antibiotics. However, if you develop one or more of the following signs or symptoms, you should seek immediate medical attention: ?Temperature >100.1?F (38?C) ?Worsening or severe abdominal pain ?An inability to tolerate fluids Hospital treatment ? If you have moderate to severe symptoms, you may be hospitalized for treatment. During this time, you are not allowed to eat or drink; antibiotics and fluids are given into a vein. If you develop an abscess of the colon, you may require drainage of the abscess (usually performed by placing a drainage tube across the abdominal wall) or by surgically opening the affected area. Surgery ? If you develop a generalized infection in the abdomen (peritonitis), you will usually require an emergency operation. A two-part operation may be necessary in some cases. ?The first operation involves removal of the diseased colon and creation of a colostomy. A colostomy is an opening between the colon and the skin, where a bag is attached to collect waste from the intestine. The lower end of the colon is temporarily sewed closed to allow it to heal. ?Approximately three to six months later, a second operation is performed to reconnect the two parts of the colon and close the opening in the skin. You are then able to empty your bowels through the rectum. Sometimes patients require up to a year to recover from the first operation, depending on how sick they were. In non-emergency situations, the diseased area of the colon can be removed and the two ends of the colon can be reconnected in one operation, without the need for a colostomy. Surgery versus medical therapy ? An operation to remove the diseased area of the colon may be necessary if you do not improve with medical therapy. After an episode of uncomplicated diverticulitis, elective surgery is generally not required as the risk of another attack or requiring emergency surgery is low. However, patients with persistent symptoms attributable to diverticulitis, a history of complicated diverticulitis, or a compromised immune system should be evaluated for possible surgery to prevent another attack. In such patients, another attack has been associated with a higher risk of complications or . Of course, the decision will also depend in part upon your other medical conditions and ability to undergo surgery. In many cases, an elective operation can be performed laparoscopically, using small incisions, rather than the typical vertical (up and down) abdominal incision. Laparoscopic surgery usually allows you to recover more quickly and shortens the hospital stay. After diverticulitis resolves ? After an episode of diverticulitis resolves, if you have not had a recent colonoscopy, the entire length of the colon should be evaluated to determine the extent of disease and to rule out the presence of abnormal lesions such as polyps or cancer. Recommended tests include colonoscopy, barium enema and sigmoidoscopy, or CT colonography. Diverticular bleeding ? Most cases of diverticular bleeding resolve on their own. However, some people will need further testing or treatment to stop bleedin g, which may include a colonoscopy, angiography (a treatment that blocks off the bleeding artery), bleeding scan, or surgery. DIVERTICULAR DISEASE PROGNOSIS Diverticulosis ? Over time, diverticulosis may cause no problems or it may cause episodes of bleeding and/or diverticulitis. Approximately 15 to 25 percent of people with diverticulosis will develop diverticulitis, while 5 to 15 percent will develop diverticular bleeding. Diverticulitis ? Approximately 85 percent of people with uncomplicated diverticulitis will respond to medical treatment, while approximately 15 percent of patients will need an operation. After successful treatment for a first attack of diverticulitis, one-third of patients will remain asymptomatic, one- third will have episodic cramps without diverticulitis, and one-third will go on to have a second attack of diverticulitis. The prognosis tends to remain similar following a second attack of diverticulitis. Only 10 percent of people remain symptom-free after a second attack. Subsequent attacks tend to be of similar severity, not increasing in severity as previously believed. High Fiber Diet What is Dietary Fiber? All fiber comes from plants, bushes, mary or trees. Of course, the ones that we eat provide us with fruits, vegetables and grains. There are many different types of fiber but the three that are most important to the health of the body are: Insoluble Fiber This fiber does not dissolve in water, nor is it fermented by the bacteria residing in the colon. Rather, it retains water and in so doing, helps to promote a larger, bulkier and more regular bowel activity. This, in turn, may be important in preventing disorder such as diverticulosis and hemorrhoids, and in sweeping out certain toxins and cancer causing carcinogens. Sources of in soluble fiber are: ? whole grain wheat and other whole grains ? corn bran, including popcorn, unflavored and unsweetened ? nuts and seeds ? potatoes and the skins from most fruits from trees such as apples, bananas and avocados ? many green vegetables such as green beans, zucchini, celery and cauliflower ? some fruit plants such as tomatoes and kiwi Soluble Fiber These fibers are fermented or used by the colon bacteria as a food source or nourishment. When these good bacteria grow and thrive, many health benefits occur in both the colon and the body. Soluble fiber is present in some degree i n most edible plant foods, but the ones with the most soluble fiber include: ? legumes such as peas and most beans, including soybeans ? oats, rye and barley ? many fruits such as berries, plums, apples bananas and pears ? certain vegetables such as broccoli and carrots ? most root vegetables ? psyllium husk supplement products Prebiotic Soluble Fiber These are relatively newly discovered soluble plant fibers. The technical name for this fiber is inulin or fructan. When these soluble fibers are fermented by the good colon bacteria, some further significant health benefits have been shown to occur by research in many medical centers. These soluble prebiotic fibers occur in significant amounts in: ? asparagus ? yams ? onions ? garlic ? bananas ? leeks ? agave ? chicory and other root vegetables such as [place] artichokes ? wheat, rye and barley (smaller amounts) Benefits of a High Fiber Diet The health benefits of a high fiber diet, consumed on a regular basis and reaching recommended amounts (below), are now fairly well-defined. There are some additional benefits in the early research stage with the prebiotic soluble fibers. What is now known regarding a high fiber diet include: Bowel Regularity A high fiber diet promotes regularity with a softer, bulkier and regular stool pattern. This decreases the chance of hemorrhoids, diverticulosis and perhaps colon cancer. Cholesterol and Reduced Triglycerides The soluble fibers are the ones that will reduce cholesterol levels when used on a regular basis. Psyllium husk and prebiotic soluble fiber will also reduce cholesterol. They may also reduce the incidence of coronary heart disease. Oats, flax seeds and legumes or beans are the recommended fibers. Colon Polyps and Cancer It is still not certain if a high fiber diet helps prevent colon cancer. Considerable research suggests that this may occur. Certainly it makes sense to increase regularity and so speed the movement of cancer causing carcinogens through the bowel. In addition, reducing a heavy meat diet reduces the bile flow from the liver in a favorable way. This, too, reduces the amount of carcinogens that reach and are manufactured in the colon. Finally, a high fiber diet, including prebiotic soluble fiber, increases the integrity and health of the wall of the colon. The risk of cancer may be reduced. Colon Wall Integrity A high fiber diet changes the bacterial makeup of the colon toward a more favorable balance. For instance, it is known that those people with obesity, diabetes type 2 and inflammatory bowel disease have a predominance of bad bacteria in the colon. This, in turn, may render the bowel wall weak and allow bacteria and, indeed, even toxins to seep through. A high fiber diet with a modest reduction in animal and meat products may return the bacterial makeup to a more positive balance. This, in particular, has been seen when the soluble fiber prebiotics are added to the diet. Blood Sugar Soluble fiber such as in legumes (beans), oats and in prebiotic fibers slows the absorption of blood sugar and so helps regulate the sugar in the blood. Insoluble fiber on a regular basis is associated with reduced risk of type 2 diabetes. Weight Loss High fiber diets are more filling and give a sense of fullness sooner than an animal and meat based diet does. In addition, the soluble prebiotic fibers have been shown to turn off the hunger hormones produced in the wall of the gut and to increase the hormones that give a sense of fullness. Those hormones are made in the wall of the gut. New medical research has shown that the bacterial makeup in the colon in overweight people is abnormal to the extent that they manufacture and absorb almost twice the number of calories through the colon wall as do normals. Prebiotic fibers (below) will help change this hormonal balancein a favorable way. Bacteria and the Function of the Colon The colon finishes the digestive process. Hopefully, the waste products move through in a nice regular manner. Insoluble fibers help this process by retaining water and so producing a bulkier, softer stool, which is easy to pass. The additional role of the colon is to provide a home for an enormous number of micro-organisms, mostly bacteria. Recent research has shown that there are over 1,000 species of bacteria with a total bacterial count ten times the number of cells in the body. These bacteria play a major role in keeping the colon wall itself healthy. In addition, these good bacteria produce a very strong immune system for the body. They significantly increase calcium absorption and bone density. They provide other documented benefits. It is the soluble fibers in the diet that are so effective in stimulating the growth of good colon bacteria. How Much is Enough? The amount of fiber in food is measured in grams. National nutritional authorities recommend the following amounts of dietary fiber daily. Under Age 50 Over Age 50 Men 38 grams 30 grams Women 25 grams 21 grams For a week or so, it is best to tally the amount of fiber you are consuming. Boxed and packaged foods will have the amount of fiber per serving on the nutrition label. Which Fibers and Which Foods are Best? As noted, healthy fiber is only found in plants. The three major categories are whole grains, fruits and vegetables. Whole Grains Wheat, oats, barley, wild or brown rice, amaranth, buckwheat, bulgur, corn, millet, quinoa, rye, sorghum, teff and triticals. By far, wheat, oats and wild or brown rice are most common. Always buy whole grain products. White bread, baked goods and rolls almost always are made from wheat flour. Wheat flour is white because most of the fiber, vitamins and other nutrients have been removed. Try not buy enriched grains. What this means is that simple white flour has had vitamins added to it by the school curriculum developer. The word, enriched, implies a good and healthy product. On the contrary, enriched means that most of the fiber has been removed and a few vitamins added. Fruits Fruits come from trees such as apple and pear or from bushes or mary. You should eat a wide variety of fruits, preferably with every meal. In many cases, the skin of a fruit such as apple will contain much of the insoluble fiber while the pulp contains most of the soluble fiber. To the extent possible, buy organic fruits as these will have little or no pesticides. Always wash fruit. Vegetables Eat a wide variety of vegetables. They should be a mainstay of lunch and dinners. Frozen vegetables retain as much nutrition and fiber as fresh vegetables. As with fruit, try to buy organic to reduce any residual pesticide ingestion. Wash fresh vegetables thoroughly. Cruciferous vegetables such as broccoli, Davy sprouts and cauliflower contain certain chemicals such as sulforaphane. This substance has very strong anti-cancer properties and should be eaten frequently. Legumes, Beans, Peas and Soybeans These vegetables have plenty of soluble fiber and should be part of a varied vegetable intake. Beans, in particular, contain a certain type of fiber that may lead to harmless gas or bloating. Nuts and Seeds These are rich sources of fiber and are a good substitute for sweets such as candies and baked sweet goods. While nuts and seeds are rich in fiber, they also contain vegetable fat and so can and do add calories. Read the Labels As noted, fresh and frozen foods are usually better. They have good nutrition and few, if any, chemicals added to them. When buying packaged foods and, in particular grains, look for three things: ? The first word on the label should be whole, such as whole wheat or whole grain. ? Check out the calories and the amount of fiber in a serving. ? How many and what other additives or chemicals are added. Fewer is always better. Do you know what each additive does? Some are added not for the benefit of the pants presser automatic but rather for manufacturers. These could and do include sugar, artificial flavor, chemicals to prevent oxidation and spoilage, emulsifiers to blend the product. You have to be a chocolate finisher. Fiber Facts, Nuggets and Pearls ? For breakfast you can easily get the day started well by using a high fiber, whole grain cereal. Check the labels. Add fruit such as blueberries and bananas. If you are an egg eater, use whole wheat or grain toast. Adding wheat germ gives you a good fiber kick. ? Always use whole grain or wheat with rolls and sandwiches. Does your fast food store not have them? Perhaps you look elsewhere. Eating an occasional black watson or veggie burger provides variety. ? Snacks should consist of fruit and/or nuts. While nuts are loaded with fiber, they are an energy rich food, meaning they have a lot of calories in a small packet. ? Fruit juices should contain pulp. Clear juices such as clear orange, pear or apple juice contain little fiber and have a lot of fructose. Prune juice is usually high in fiber. ? Homemade soups ? adding fresh or frozen vegetables to a chicken or vegetable stock is a good way to start homemade soup. ? Salads ? adding cooked and then chilled vegetables provide great flavoring to almost any salad. Remember, a broussard salad has lots of cooked corn in it. Small slices of apples or oranges and nuts such as chopped walnuts or sliced almonds always adds taste, variety and fiber to almost any salad. ? Fruit ? Try to eat fruit of some type with almost every meal. ? Rethink how you place the various foods on your dinner plate. Reducing the portions of the meat or animal food portion to the side with equal or more portions of vegetables, legumes and fruits portion always allows for more fiber. There was never anything magic about making the meat or animal food portion the main part of the dinner plate. Eating from smaller plates can, over time, trick your mind and intermediate manager habit of using a dinner plate. Again, there is nothing magic in an 11, 12, or 13 inch dinner plate. Fiber Supplements There are a variety of fiber supplements available on the food or pharmacy shelves. Psyllium This soluble plant fiber has been used in [place] for over 2,000 years. It is a soluble fiber with mucilage in it. This acts to retain a lot of water and also is fermented by colon bacteria. When 7 grams a day are used, it does lower cholesterol. Metamucil in various forms is psyllium. Methyl Cellulose All the cellulose products come from finely ground wood chips which are then treated in a variety of ways such as boiling in acids. Methyl cellulose is an insoluble fiber which does dissolve in water. It is also an emulsifier, meaning it blends oils and water. Citrucel is methyl cellulose (MC). MC may not be appropriate for Crohn?s disease or ulcerative colitis as several medical studies have shown that certain emulsifiers dissolve the mucous lining of the colon in animals prone to Crohn?s disease. This then allows bacteria to invade the underlying tissue. Inulin Inulin is a soluble prebiotic fiber found in many foods and which are fermented mostly in the left side of the colon. It is available in a supplement as generic inulin and in Fiber Choice. Oligofructose FOS These are also prebiotic fibers. They are fermented very quickly in the right side of the colon. Prebiotin This product is a combination of oligofructose, which feeds the bacteria in the right side of the colon and inulin, which does the same in the left side of the colon. There seems to be a benefit for this particular formula based on medical research. Prebiotic Soluble Fiber These may be the healthiest of all the soluble fibers. They grow in many plants and have had a great deal of research done on them in the last 10-15 years. These fibers are found in asparagus, yams and other root vegetables such as chicory, garlic, onion, leeks and in smaller amounts in wheat. This research has shown the following: ? Increase in good and decrease in bad colon bacteria ? Increase calcium absorption and enhanced bone mass ? Enhanced immune system ? Appetite and weight control by changing the hormone appetite signals to the brain ? May decrease colon cancer incidence ? Reduce or correct a leaky colon Eating a wide variety of plant food up to the recommended amount will likely give you enough prebiotic fiber. Supplements such as Prebiotin can be added to the diet. Short Chain Fatty Acids (SCFA) Some rather remarkable research findings have shown that one of the benefits of ingesting a lot of soluble fiber, in particular the prebiotic ones, results in larger amounts of SCFAs in the colon. These SCFAs are made by the good bacteria in the colon such as Bifidobacter and Lactobacillus. These small molecules have been shown to do the following: ? Enhance the health and integrity of the colon wall ? Provide nourishment for the cells that actually line the colon ? Increases the acidity of the colon which is a very real health benefit ? Stabilize blood sugar for diabetics ? Reduce blood cholesterol and triglyceride ? Significantly enhance immunity ? May be a benefit for Crohn?s disease and ulcerative colitis patients Fiber and Gas Everyone has intestinal gas and that is a good thing. It means that bacteria, hopefully the good ones, are thriving. The normal amount of flatus passed each day depends on sex and what is eaten. The normal number of flatus is 10-20 times a day. When the bacteria that make intestinal gases are growing, it also means that other good bacteria are using the same fibers to grow and produce multiple health benefits, including the production of healthy short-chain fatty acids. These substances are produced quietly in the colon and produce many health-related outcomes. Soluble fiber should always be used in a gradual manner. If too much is consumed at any one time, then excess, but harmless, intestinal gas can occur. People with irritable bowel syndrome are particularly prone to bloating and mild cramping. In this instance, soluble fiber in the diet or supplement should be used in small doses and increased gradually. Finally, prebiotic fibers tend to cause the production of short-chain fatty acids which acidify the colon. This, in turn, reduces or stops the growth of bacteria that make the smelly hydrogen sulfide gases that produce noxious flatus. People who consume many vegetables with prebiotics or take a prebiotic fiber supplement often have non-odoriferous flatus. Fiber and Irritable Bowel Syndrome Irritable bowel syndrome (IBS) is one of the most common disorders of the lower digestive tract. The symptoms of IBS can be quite varied. They can be a mix of several symptoms such as constipation, diarrhea, crampy abdominal discomfort, bloating and gas. An attack of IBS can be triggered by emotional tension and anxiety, poor dietary habits and certain medications. It is now known that infections in the intestine can lead to long-term IBS symptoms. Increased amounts of fiber in the diet can help relieve the symptoms of irritable bowel syndrome by producing soft, bulky stools. This helps to normalize the time it takes for the stool to pass through the colon. Recent medical research with newer techniques has shown some surprising and dramatic findings for IBS patients. Specifically, there is a very significant and abnormal shift of bacteria from those that provide health benefits to those bad bacteria that we really do not want in the gut. The technical name for this bad group of bacteria is called Firmicutes. Along with this abnormal bacterial collection, there is a smoldering low-grade inflammation in the gut wall that may contribute to symptoms. The goal for IBS patients should be to gradually increase the soluble dietary fibers in the diet so as to promote the growth of good bacteria and so suppress the bad ones along with the associated inflammation. IBS patients need to be careful of the amount of soluble fiber they consume. The reason for this is that, while the good colon bacteria thrive on these fibers and produce health benefits, other gas-forming bacteria may generate excessive but harmless gas and subsequent bloating. Thus, soluble plant fibers or a dietary prebiotic supplement should be taken in small initial doses and then gradually increased to tolerance. Fiber and Colon Polyps/Cancer Colon cancer is a major health problem. This disease is most common in Western cultures. It is not seen very often in rural cultures where the diet is mostly plant based. Usually, colon cancer starts out as a colon polyp, a benign mushroom-shaped growth. In time it grows, and in some people it becomes cancerous. Colon cancer is usually always curable if polyps are removed when found or if surgery is performed at an early stage. It is now known that people can inherit the risk of developing colon cancer, but diet is important, too. As noted, there is a very low rate of colon cancer in residents of countries where grains are unprocessed and retain their fiber. It seems that in the [place] world, cancer-containing agents (carcinogens) remain in contact with the colon wall for a longer time and in higher concentrations. So, a large bulky stool may act to dilute these carcinogens by moving them through the bowel more quickly. Less carcinogenic exposure to the colon may mean fewer colon polyps and less cancer. A very current review of the entire world?s literature on the effect of fiber on colon polyps and cancer prevention has shown rather clearly that for every 10 grams of fiber added to the diet, there is a 10% reduction in incidence of colon cancer. So the recommended 30 gram fiber diet would result in a 30% less chance of getting these tumors. There are also substances produced in the colon by the good bacteria that seem to retard certain pre-cancer factors from developing. They are called short- chain fatty acids (SCFA). See above for description of SCFAs. A high fiber diet increases these substances. So, the combination of dietary fiber and the production of short-chain fatty acids have a clear health benefit. Fiber and Diverticulosis Prolonged, vigorous contraction of the colon over a long period of time may result in diverticulosis. This increased pressure causes small and, eventually, larger ballooning pockets to form. These pockets by themselves cause no problem. However, sometimes they become infected (diverticulitis) or even break open (perforate) causing infection or inflammation within the abdomen (peritonitis). A high fiber diet increases the bulk in the stool and thereby reduces the pressure within the colon. By so doing, the formation of pockets may be reduced or possibly even stopped. In the past, many physicians were fearful that seeds as in tomatoes, nuts or berries were harmful and could get inside these pockets and rattle around, causing damage. We now know that this has never been the case and that these foods contain lots of fiber and are actually beneficial for diverticulosis patients. Certain bulking agents such as psyllium are traditional types of bulk producing supplements. Psyllium is a soluble fiber. Combining it with insoluble fiber as in wheat bran or corn bran (no gluten) can enhance this bulking effect even more. A product containing a prebiotic, psyllium and wheat bran is probably a very good combination for bowel regularity. Prebiotin Regularity/Diverticulosis is one such product. Activity:: No lifting over 20 pounds or strenuous activity x24 hours Diet:: Small light meals x24 hours. Discharge Orders Discharge Orders: Discharge Order (Routine); Ordered 09/15/20 Ordered By: Nasra Mcallister DS: Diagnosis Discharge Diagnosis (1) Adenomatous polyps: Status: Acute (2) Diverticula of colon: Status: Acute (3) Internal hemorrhoids: Status: Acute
[2020-09-15 09:50] VITALS: BP 108/72; PULSE 58; RESP 18; TEMP 36.5; O2SAT 98
--- NOTE | 2020-09-15 09:52 | W.ANESPOSTOP ---
Postoperative Evaluation Date, Time and Location Date Performed: 09/15/20 Time Performed: 09:53 Patient Location: Day Surgery Unit Vital Signs Most Recent Imported Vital Signs: Most Recent Vital Signs Temp Pulse Resp BP Pulse Ox 36.3 C L 67 17 97/66 L 98 09/15/20 08:15 09/15/20 08:15 09/15/20 08:15 09/15/20 08:15 09/15/20 08:15 Most Recent Manually Entered Vital Signs: Adult Blood Pressure: 108/72 Heart Rate: 58 Respirations: 10 Oxygen Saturation (%): 98 Temperature (C): 36.5 C Pain Score (0-10 Scale): 1 Assessment Mental Status: Awake (Alert & Oriented to Patient Baseline) Airway and Respiratory Function: Patent airway with normal (patient baseline) respiratory exam Cardiovascular Function: Hemodynamically Stable Hydration Status: Adequately Hydrated Nausea & Vomiting: No Nausea or Vomiting Pain: Pain is tolerable/mild (<5/10) Peripheral Nerve Block: Patient did not receive a nerve block Teaching Patient Teaching: Discussed Safe Use of Pain Medication Given Recent Anesthesia
[2020-09-15 09:53] VITALS: BP 108/72; PULSE 58; RESP 10; TEMPC 36.5; O2SAT 98
[2020-09-15 10:21] VITALS: BP 112/72; PULSE 57; RESP 18; TEMP 36.4; O2SAT 99
== END 2020-09-15 11:25 | disposition home or self-care (01) ==
PROVIDERS: PCP Physician Assistant; Visit Provider Surgery
PROC: 0DJD8ZZ Inspection of Lower Intestinal Tract, Via Natural or Artificial Opening Endoscopic (ICD-10-PCS; CPT 45378; principal; 2020-09-15 09:00)
DX: Z12.11 Encounter for screening for malignant neoplasm of colon (principal); K64.0 First degree hemorrhoids; K57.30 Diverticulosis of large intestine without perforation or abscess without bleeding; D12.0 Benign neoplasm of cecum
CPT/HCPCS: 45380; 88305; J2001

== ENCOUNTER 2021-03-30 14:43 | Outpatient (REF) | payer OTHER, SELFPAY ==
[2021-03-30 16:02] LABS: Anion Gap 6.9 mmol/L (3-11); BUN 17 mg/dL (7-18); CO2 30.1 mmol/L (21.0-32.0); CREATININE 0.6 mg/dL (0.55-1.02); Calculated LDL 142 mg/dL (<100); Chloride 106 mmol/L (98-107); Cholesterol 240 mg/dL (<200); Glucose 100 mg/dL (74-106); HDL Cholesterol 73 mg/dL (40-60); Potassium 4.7 mmol/L (3.5-5.1); Sodium 143 mmol/L (136-145); Triglyceride 129 mg/dL (<150)
== END 2021-03-30 14:44 | disposition home or self-care (01) ==
LOC: NCHCN 14:43
PROVIDERS: PCP Physician Assistant; Visit Provider Physician Assistant
DX: Z00.00 Encounter for general adult medical examination without abnormal findings (principal)
CPT/HCPCS: 80048; 80061

== ENCOUNTER 2022-04-19 16:07 | Outpatient (REF) | payer OTHER, SELFPAY ==
[2022-04-19 18:13] LABS: HCT 41.3 % (36.0-46.0); HGB 13.8 g/dL (11.2-15.7); MCHC 33.4 % (32.0-36.0); MCV 93 fL (80-95); MPV 10.2 fL (8.0-11.0); Platelet Count 359 10^3/uL (130-400); RBC 4.45 10^6/uL (3.93-5.22); RDW 12.5 % (11.7-14.6); RDW-SD 43.2 fL; WBC 6.18 10^3/uL (4.4-10.8)
[2022-04-19 18:25] LABS: Calculated LDL 189 mg/dL (<100); Cholesterol 277 mg/dL (<200); HDL Cholesterol 78 mg/dL (40-60); Triglyceride 51 mg/dL (<150)
== END 2022-04-19 16:08 | disposition home or self-care (01) ==
LOC: NCHCN 16:07
PROVIDERS: PCP Physician Assistant; Visit Provider Physician Assistant
DX: E78.5 Hyperlipidemia, unspecified (principal)
CPT/HCPCS: 80061; 85027

== ENCOUNTER → 2022-04-23 02:28 | Outpatient (CLI) | payer OTHER, SELFPAY ==
--- NOTE | 2022-04-23 08:45 | DI.MAMMO_ITS ---
Exam(s) MAMMO SCREENING EXAM: MAMMO SCREENING CLINICAL HISTORY: SCREENING, Z12.39 TECHNIQUE: Bilateral full field digital CC and MLO mammographic images were obtained with 3D tomosyn thesis and utilizing computer aided detection (CAD). COMPARISON: Available for comparison. FINDINGS: Masses/Architectural Distortion: None seen. Microcalcifications: No suspicious pleomorphic-type are seen. Skin Thickening/Nipple Retraction: None. IMPRESSION: 1. No significant interval change with no specific features of malignancy noted. 2. Unless there is more urgent need, screening mammography is recommended, as per [employer] guidelines. BI-RADS Category 1 - Negative Breast Density - Category C - Heterogeneously dense Breast density category C or D implies that the patient has dense breast tissue. Dense breast tissue is very common and is not abnormal but dense breast tissue can make it harder to find cancer on a ma mmogram. Also, dense breast tissue may increase their breast cancer risk. This information about the result of the mammogram report was provided to the patient to raise their awareness. Use this report when you speak with the patient about their risks for breast cancer, which includes their family hist ory. At that time, you may recommend for more screening tests (Ultrasound or MRI) as they might be us eful based on their risk. A negative radiographic report should not delay biopsy if a dominant or clinically suspicious mass is present. Up to ten percent of cancers are not identified on mammography. A negative report may reinforce clinical impression. Adenosis and dense breasts may obscure an underlying neoplasm. False positive reports average 6 to 10%. Patient will receive a letter notifying them of these results.
== END ==
PROVIDERS: PCP Physician Assistant; Visit Provider Physician Assistant
DX: Z12.31 Encounter for screening mammogram for malignant neoplasm of breast (principal); R92.8 Other abnormal and inconclusive findings on diagnostic imaging of breast
CPT/HCPCS: 77063; 77067

== ENCOUNTER 2022-06-17 12:52 | Outpatient (REF) | payer OTHER, SELFPAY ==
--- NOTE | 2022-06-17 09:00 | PAPFT_PTH ---
PATIENT: Ivana Mccurdy LOC: [facility] U#:[id number] AGE/SX: 61/F ROOM: RE06/17/[address]: Blank Rivera MD : [id number] BED: DIS: 06/17/2022 SPEC #: [id number] RECD: 06/17/22 12:54 STATUS: ASAEL REQ #: [id number] CONRAD: 06/17/22 09:[address]: Blank Rivera DEPT: [facility] Cytology RECD BY: Carola Cowart ENTERED: 06/17/22 12:54 SP TYPE: PAPFT OTHR DR: Manuel Rodriguez Tissues: 1 - CX/ENDOCX FOR PAP SMEARS Procedures: PAP THIN PREP/[facility] Screening HPV DNA PROBE Comments: [id number]
== END 2022-06-17 12:53 | disposition home or self-care (01) ==
LOC: LBN 12:52
PROVIDERS: PCP Physician Assistant; Visit Provider Obstetrics & Gynecology
DX: Z12.4 Encounter for screening for malignant neoplasm of cervix (principal); Z11.51 Encounter for screening for human papillomavirus (HPV)
CPT/HCPCS: 88142; 87624

== ENCOUNTER 2023-04-04 20:57 | Outpatient (REF) | payer OTHER, SELFPAY ==
[2023-04-04 16:33] LABS: Calculated LDL 193 mg/dL (<100); Cholesterol 291 mg/dL (<200); HDL Cholesterol 65 mg/dL (40-60); Triglyceride 168 mg/dL (<150)
== END 2023-04-04 20:58 | disposition home or self-care (01) ==
LOC: NCHCN 20:57
PROVIDERS: PCP Physician Assistant; Visit Provider Physician Assistant
DX: E78.5 Hyperlipidemia, unspecified (principal)
CPT/HCPCS: 80061

== ENCOUNTER 2023-09-16 15:43 | Outpatient (CLI) | payer SELFPAY ==
--- NOTE | 2023-09-16 13:15 | DI.RAD_ITS ---
Exam(s) XR SHOULDER RT COMPLETE 2+V EXAM: XR SHOULDER RT COMPLETE 2+V CLINICAL HISTORY: RIGHT SHOULDER PAIN. TECHNIQUE: 2D digital imaging was performed. Two views. COMPARISON: No exams were available for comparison FINDINGS: BONES: No acute fracture is present. No bony destructive lesion is seen. JOINTS: No dislocation present. Minimal spurring at the AC joint. Minimal spurring at the glenohume ral joint. SOFT TISSUE: Normal. IMPRESSION: Minimal degenerative changes. DATA REPOSITORY: RADIATION DOSE DELIVERED:
== END 2023-09-16 15:44 | disposition home or self-care (01) ==
LOC: DIORS 15:44
PROVIDERS: PCP Physician Assistant; Visit Provider Physician Assistant
DX: M25.511 Pain in right shoulder (principal)
CPT/HCPCS: 73030

== ENCOUNTER → 2023-09-18 12:25 | Outpatient (CLI) | payer SELFPAY ==
--- NOTE | 2023-09-18 11:15 | DI.MRI_ITS ---
Exam(s) MR UPPER JOINT RT WO EXAM: MR UPPER JOINT RT WO CLINICAL HISTORY: R SHOULDER PAIN,rt rotator cuff tear, m75.101. TECHNIQUE: Multiplanar multisequence MRI was performed. COMPARISON: Non plain films 16 September 2023 FINDINGS: BONES: There is no fracture or contusion pattern. JOINTS:The acromioclavicular joint shows mild degenerative changes. Mild spurring at the undersurfa ce of the acromion. The glenohumeral joint shows a moderate effusion. TENDONS: Supraspinatus: Distal thickening and edema. No visible focal tear. Infraspinatus: Unremarkable. Subscapularis: Some intermediate signal distally consistent with tendinosis. Teres Minor: Unremarkable. Biceps and [place]: Unremarkable. MUSCLES: Unremarkable. GLENOID LABRUM: Unremarkable on this noncontrast examination. SOFT TISSUES: Unremarkable. OTHER: Subacromial and subdeltoid bursae . Loculated fluid in the subcoracoid bursa. IMPRESSION: Supraspinatus tendinosis. Mild tendinosis of the subscapularis. Joint effusion. Loculated fluid in the subcoracoid bursa. DATA REPOSITORY:
== END ==
PROVIDERS: PCP Physician Assistant; Visit Provider Student in an Organized Health Care Education/Training Program
DX: M75.111 Incomplete rotator cuff tear or rupture of right shoulder, not specified as traumatic (principal)
CPT/HCPCS: 73221